=== PATIENT | male | born 1970 | race Two or more races ===

== ENCOUNTER 2024-08-18 06:14 | Emergency (ER) | payer OTHER, SELFPAY ==
[~2024-08-18] VITALS: Ht 180.3 cm; Wt 100.0 kg
--- NOTE | 2024-08-18 06:26 | ECG ---
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
--- NOTE | 2024-08-18 06:39 | ED.PDOC ---
GI ASSESSMENT HPI Comments 53 year old male presents to the ED via EMS with a chief complaint of abdominal pain onset last night. Per EMS, patient has been experiencing epigastric pain radiating to RUQ since last night as well as nausea/vomiting. Patient states he had hernia repair surgery on December [address] Coleman, since then experiences intermittent abdominal pain worsens after eating. He currently rates pain 7/10, states he has seen PCP, has been sent for gallbladder US, endoscopy and colonoscopy with negative results. PMHx of HTN. Denies headache, dizziness, chest pain, shortness of breath, diarrhea, dysuria, hematuria, hematemesis, blood in stood, fever, chills. No other symptoms or modifying factors present at this time. Chief Complaint: Abdominal Pain Time Seen by MD: 06:20 Reviewed Notes: Medications, Allergies Allergies: Coded Allergies: Morphine (Verified Allergy, Intermediate, vomiting , 08/18/24) Information Source: Patient, Emergency Med Personnel Mode of Arrival: EMS Timing: Hours Duration: Since onset Prehospital treatment: None Quality: Sharp Severity: Moderate Recent Hx of: None Pain Location: Epigastric, RUQ Modifying Factors: Nothing Associated sign and symptoms: Nausea, Vomiting, Abdominal Pain Past Medical History PAST MEDICAL HISTORY: HTN Surgical History: Hernia Repair Family History Family History: Reviewed,noncontributory to illness, No family hx of Cancer, No family hx of DM, No family hx of Heart rosa, No family hx of HTN, No family hx ofKidney rosa, No family hx of Liver rosa, No family hx of Lung rosa, No family hx of Stroke Social History Smoker: Non-Smoker Alcohol: Denies ETOH Use Drugs: Denies Drug Use Lives In: Home Constitutional: denies: chills, diaphoresis, fatigue, fever, malaise, sweats, weakness, others EENTM: denies: blurred vision, double vision, ear bleeding, ear discharge, ear drainage, ear pain, ear ringing, eye pain, eye redness, hearing loss, mouth pain, mouth swelling, nasal discharge, nose bleeding, nose congestion, nose pain, photophobia, tearing, throat pain, throat swelling, voice changes, others Respiratory: denies: cough, hemoptysis, orthopnea, SOB at rest, shortness of breath, SOB with excertion, stridor, wheezing, others Cardiovascular: denies: chest pain, dizzy spells, diaphoresis, Dyspnea on exertion, edema, irregular heart beat, left arm pain, lightheadedness, palpitations, PND, syncope, others Gastrointestinal: reports: abdominal pain, nausea, vomiting; denies: abdomen distended, blood streaked bowels, constipated, diarrhea, dysphagia, difficulty swallowing, hematemesis, melena, poor appetite, poor fluid intake, rectal bleeding, rectal pain, others Genitourinary: denies: burning, dysuria, flank pain, frequency, hematuria, incontinence, penile discharge, penile sore, pain, testicle pain, testicle swelling, urgency, others Neurological: denies: dizziness, fainting, headache, left sided numbness, left sided weakness, numbness, paresthesia, pre-existing deficit, right sided numbness, right sided weakness, seizure, speech problems, tingling, tremors, weakness, others Musculoskeletal: denies: back pain, gout, joint pain, joint swelling, muscle pain, muscle stiffness, neck pain, others Integumetry: denies: bruises, change in color, change in hair/nails, dryness, laceration, lesions, lumps, rash, wounds, others Hematologic/Lymphatic: denies: anemia, blood clots, easy bleeding, easy brui sing, swollen glands, others Endocrine: denies: excessive hunger, excessive sweating, excessive thirst, ex cessive urination, flushing, intolerance to cold, intolerance to heat, unexplained weight gain, unexplained weight loss, others Psychiatric: denies: anxiety, bipolar disorder, depression, hopeless, panic disorder, schizophrenia, sleepless, suicidal, others All Other Systems: Reviewed and Negative Physical Exam General Appearance: Moderate Distress, Normal HEENT: Normal ENT Inspection, Pharynx Normal, TMs Normal Neck: Full Range of Motion, Non-Tender, Normal, Normal Inspection Respiratory: Chest Non-Tender, Lungs Clear, No Accessory Muscle Use, No Respiratory Distress, Normal Breath Sounds Cardiovascular: No Edema, No JVD, No Murmur, No Gallop, Normal Peripheral Pulses, Regular Rate/Rhythm Breast Exam: Deferred Gastrointestinal: No Organomegaly, Non Tender, No Pulsatile Mass, Normal Bowel Sounds, Soft Genitalia: Deferred Pelvic: Deferred Rectal: Deferred Extremities: No calf tenderness, Normal capillary refill, Normal inspection, Normal range of motion, Non-tender, No pedal edema Musculoskeletal : Apperance: Normal Neurologic: Alert, machine engineer II-XII nml as Tested, No Motor Deficits, Normal Affect, Normal Mood, No Sensory Deficits Cerebellar Function: Normal Reflexes: Normal Skin: Dry, Normal Color, Warm Peripheral Pulses: 3+ Radial (R), 3+ Radial (L) Lymphatic: No Adenopathy EKG EKG : Pulse Rate (adult): 56 Cardiac Rhythm: NSR Was a procedure done? Was a procedure done?: No GI differential Dx Differential Diagnosis: Constipation, Diverticular disease, Esophagitis, Gastritis/PUD, Gastroenteritis X-Ray, Labs, Meds, VS Vital Signs Date Time Temp Pulse Resp B/P (MAP) Pulse Ox O2 Delivery O2 Flow Rate FiO2 08/18/24 07:35 84 18 96 Room Air* 0 21 08/18/24 07:35 149/97 08/18/24 07:35 98.3 84 18 149/97 (114) 96 98.3 08/18/24 06:50 81 16 147/87 (107) 81 08/18/24 06:39 56 08/18/24 06:27 98.1 65 18 170/104 (126) 97 98.1 08/18/24 06:17 56 Lab Test 08/18/24 07:12 Range/Units White Blood Count 10.7 4.4-10.8 10^3/uL Red Blood Count 5.83 4.5-5.90 10^6/uL Hemoglobin 18.2 H 13.5-17.5 g/dL Hematocrit 53.0 41.0-53.0 % Mean Corpuscular Volume 91.0 80.0-100.0 fL Mean Corpuscular Hemoglobin 31.2 28.0-32.0 pg Mean Corpuscular Hemoglobin Concent 34.2 32.0-36.0 g/dL Red Cell Distribution Width 15.3 H 11.8-14.3 % Platelet Count 191 140-450 10^3/uL Mean Platelet Volume 8.2 6.9-10.8 fL Neutrophils (%) (Auto) 87.5 H 37.0-80.0 % Lymphocytes (%) (Auto) 7.5 L 10.0-50.0 % Monocytes (%) (Auto) 4.4 0.0-12.0 % Eosinophils (%) (Auto) 0.1 0.0-7.0 % Basophils (%) (Auto) 0.5 0.0-2.0 % Neutrophils # (Auto) 9.4 H 1.6-8.6 10 ^3/uL Lymphocytes # (Auto) 0.8 0.4-5.4 10 ^3/uL Monocytes # (Auto) 0.5 0-1.3 10 ^3/uL Eosinophils # (Auto) 0 0-0.8 10 ^3/uL Basophils # (Auto) 0.1 0-0.2 10 ^3/uL Nucleated Red Blood Cells 0.1 % Sodium Level 137 136-145 mmol/L Potassium Level 4.2 3.5-5.1 mmol/L Chloride Level 105 98-107 mmol/L Carbon Dioxide Level 27 20-31 mmol/L Anion Gap 5 5-15 Blood Urea Nitrogen 13 9-23 mg/dL Creatinine 1.03 0.700-1.30 mg/dL Glomerular Filtration Rate Calc 88 >90 mL/min BUN/Creatinine Ratio 12.6 10.0-20.0 Serum Glucose 130 H 74-106 mg/dL Calcium Level 10.3 8.7-10.4 mg/dL Total Bilirubin 0.8 0.2-1.0 mg/dL Lipase Pending Current Medications Medications (Trade) Dose Ordered Sig/Enrique Route Start Time Stop Time Status Last Admin Ondansetron HCl (Zofran) 4 mg ONCE ONCE IV 08/18/24 06:45 08/18/24 06:49 DC 08/18/24 07:14 Ketorolac Tromethamine (Toradol Injection) 30 mg ONCE ONCE IV 08/18/24 07:15 08/18/24 07:16 DC 08/18/24 07:14 Patient alert. Complaining of abdominal pain. Abdomen is soft nontender. Blood pressure slightly elevated. Was given clonidine. Was given morphine. Was given Zofran. Has been here many times for similar symptom. Reviewed his previous visit. Continue monitor. Ultrasound reviewed does not show any acute process. WBC within normal limits. Hemoglobin within normal limits. Was given pain medication. Explained to the patient. Was told to follow up with his primary care physician. Was told to come back if there is any problem. [address] [address] Ph: [phone] DIAGNOSTIC IMAGING Diagnostic Imaging Report : [id number] Signed PATIENT: BRISA ROSALES ACCT: [id number] UNIT: [id number] : 1970 LOC: ER ROOM / BED: / AGE / SEX: 53 / M ADM STATUS: REG ER SERVICE ORDERING PHYSICIAN: LIDIA RESTREPO MD PROCEDURE(s): GBUS - GALLBLADDER REASON: stone ORDER NUMBER(s): [id number], ACCESSION NUMBER(s): [id number] EXAM: US GALLBLADDER INDICATION: stone TECHNIQUE: Multiple real-time sonographic images were obtained of the right upper quadrant. COMPARISON: None FINDINGS: The liver demonstrates homogenous echotexture without focal mass lesions. The liver measures 15.1 cm in length. There is hepatopedal color doppler flow in the main portal vein. There is no intrahepatic biliary ductal dilatation. The gallbladder is without evidence of stone or sludge. The gallbladder wall measures 0.2 cm. The common bile duct measures 0.2 cm. The right kidney measures 11.9 cm. The right kidney is normal in contour, size, and shape. The echogenicity is normal. There is no hydronephrosis. The pancreas is not well visualized due to overlying bowel gas. Visualized portions of the aorta and inferior vena cava are unremarkable. No evidence of ascites. IMPRESSION: 1. No acute process. ATED BY: KONSTANTIN BARNES MD DICTATED DATE/TIME: 08/18/24724 SIGNED BY: KONSTANTIN BARNES MD SIGNED DATE/TIME: 08/18/24724 CC: Time of 1ST Reevaluation: 06:50 Reevaluation 1ST: Unchanged Time of 2ND Reevaluation: 08:52 Reevaluation 2ND: Improved Patient Education/Counseling: Diagnosis, Treatment, Prognosis Family Education/Counseling: No Family Present Additional Information The following tests were ordered, and results were reviewed by me: EKG, CBC, LIPASE, US GALLBLADDER, BILIRUBIN Additional Information was gathered from interviewing the following independent historians: EMS I reviewed and agreed with the following test results read by other providers: US GALLBLADDER I discussed treatment and results with medical personnel and: patient Comprehensive systems review obtained and negative except for what is stated in the HPI. Departure 1 Departure Time of Disposition: 06:45 Impression: Primary Impression: Acute abdominal pain Disposition: 01 HOME / SELF CARE / HOMELESS Condition: Good Discharged With: Self Critical Care Note Critical Care Time?: No Stability Stability form required: No Heart Score Heart Score: Heart Score Response (Comments) Value History N/A 0 EKG N/A 0 Age N/A 0 Risk Factors N/A 0 Troponin N/A 0 Total 0 I personally scribed for LIDIA RESTREPO MD ([email or web address]) on 08/18/24 at 06:39. Electronically submitted by Yoli Bobo ([email or web address]). I personally scribed for LIDIA RESTREPO MD ([email or web address]) on 08/18/24 at 08:04. Electronically submitted by Yoli Bobo ([email or web address]). I personally scribed for LIDIA RESTREPO MD ([email or web address]) on 08/18/24 at 08:04. Electronically submitted by Yoli Bobo ([email or web address]). LIDIA RESTREPO MD August 18, 2024 06:39
[2024-08-18] MEDS: MORPHINE SULFATE INJ 2 MG/ml SYRG IV ONE (06:53)
[2024-08-18] MEDS: ONDANSETRON HCL 4 MG/2 ML VIAL IV ONE (07:14)
[2024-08-18] MEDS: KETOROLAC TROMETH 30 MG/ML 1ML VIAL IV ONE (07:14)
--- NOTE | 2024-08-18 07:27 | DVH ---
EXAM: US GALLBLADDER INDICATION: stone TECHNIQUE: Multiple real-time sonographic images were obtained of the right upper quadrant. COMPARISON: None FINDINGS: The liver demonstrates homogenous echotexture without focal mass lesions. The liver measure s 15.1 cm in length. There is hepatopedal color doppler flow in the main portal vein. There is no int rahepatic biliary ductal dilatation. The gallbladder is without evidence of stone or sludge. The gallbladder wall measures 0.2 cm. The common bile duct measures 0.2 cm. The right kidney measures 11.9 cm. The right kidney is normal in contour, size, and shape. The ech ogenicity is normal. There is no hydronephrosis. The pancreas is not well visualized due to overlying bowel gas. Visualized portions of the aorta and inferior vena cava are unremarkable. No evidence of ascites. IMPRESSION: 1. No acute process.
[2024-08-18 07:32] LABS: Anion Gap 5 (5-15); Carbon Dioxide 27 mmol/L (20-31); Chloride 105 mmol/L (98-107); Potassium 4.2 mmol/L (3.5-5.1); Sodium 137 mmol/L (136-145)
[2024-08-18 07:33] LABS: Calcium 10.3 mg/dL (8.7-10.4)
[2024-08-18 07:35] VITALS: BP 149/97; PULSE 84; RESP 18; TEMP 98.3; O2SAT 96
[2024-08-18] MEDS: cloNIDine HCL 0.1 MG TAB PO ONE (07:35)
[2024-08-18 07:38] LABS: BUN/Creatinine Ratio 12.6 (10.0-20.0); Blood Urea Nitrogen 13 mg/dL (9-23)
[2024-08-18 07:40] LABS: Bilirubin, Total 0.8 mg/dL (0.2-1.0); Glucose 130 mg/dL (74-106)
[2024-08-18 07:41] LABS: Eosinophils # (auto) 0 10 ^3/uL (0-0.8); Eosinophils % (auto) 0.1 % (0.0-7.0); Lymphocytes # (auto) 0.8 10 ^3/uL (0.4-5.4); Red Cell Distribution Width 15.3 % (11.8-14.3)
[2024-08-18 07:45] LABS: Basophils # (auto) 0.1 10 ^3/uL (0-0.2); Basophils % (auto) 0.5 % (0.0-2.0); Hemoglobin 18.2 g/dL (13.5-17.5); Lymphocytes % (auto) 7.5 % (10.0-50.0); Mean Corpuscular Hemoglobin 31.2 pg (28.0-32.0); Mean Corpuscular Hgb Conc. 34.2 g/dL (32.0-36.0); Monocytes # (auto) 0.5 10 ^3/uL (0-1.3); Monocytes % (auto) 4.4 % (0.0-12.0); Neutrophils # (auto) 9.4 10 ^3/uL (1.6-8.6); Neutrophils % (auto) 87.5 % (37.0-80.0); Nucleated Red Blood Cells % 0.1 %; Platelet Count (auto) 191 10^3/uL (140-450); Red Blood Cells 5.83 10^6/uL (4.5-5.90); White Blood Cell 10.7 10^3/uL (4.4-10.8)
[2024-08-18 08:58] LABS: Lipase 171 U/L (12-53)
== END 2024-08-18 09:21 | disposition home or self-care (01) ==
LOC: ER 06:14 → EDBD 06:14 → ER 09:21
DX: R10.13 Epigastric pain (principal); I10 Essential (primary) hypertension; Z88.5 Allergy status to narcotic agent; Z98.890 Other specified postprocedural states
CPT/HCPCS: 36415; 76705; 80048; 82247; 83690; 85025; 93005; 96374; 96375; 99285; J1885; J2405

== ENCOUNTER 2024-10-07 02:43 | Inpatient (IN) | payer SELFPAY ==
[~2024-10-07] VITALS: Ht 175.3 cm; Wt 82.2 kg
[2024-10-07] VITALS (10 sets, daily range): BP systolic 110–141; BP diastolic 53–77; PULSE 54–72; RESP 9–20; TEMP 97.5–98.6; O2SAT 87–98
--- NOTE | 2024-10-07 03:21 | ED.PDOC ---
History of Present Illness HPI Comments 54-year-old male is brought in by ambulance from private residence for chief complaint of nonradiating, periumbilical abdominal, nausea, vomiting, diarrhea, and poor appetite. Patient endorses 1 day history of symptoms, which began yesterday at around 1400, unprovoked. Symptoms has been progressively worsening since. Pain has a 8/10 in severity, transitions between constant and intermittent, worsens whenever standing up, and is described as a balloon blowing up sensation. He endorses on having history of pain before in the past ever since having his hernia repair surgery in December 2023 at [facility], which he has had 2 subsequent bowel obstructions since then. Last bowel movement was yesterday. Patient states on not passing gas, currently. Significant history for small-bowel obstructions, hernia repair, and hypertension. Denies having any bloody or bilious vomitus, bloody stools, constipation, urinary symptoms, fever, chills, or further associated symptoms. Chief Complaint: Abdominal Pain Time Seen by MD: 02:50 Reviewed Notes: Nurses Notes, Medications, Allergies Allergies: Coded Allergies: Morphine (Verified Allergy, Intermediate, vomiting , 08/18/24) Home Meds Active Scripts Dicyclomine Hcl (BENTYL CAPSULE) 10 Mg Cp, 20 MG PO QID for 30 Days, #190 CAP Prov:WAYNE HENAO MD 10/08/24 Information Source: Patient, Emergency Med Personnel Mode of Arrival: EMS Severity: Moderate Timing: Hours Duration: Since onset Prehospital treatment: 12 Lead EKG, Accounts Receivable Coordinator, Other (Zofran) Review of Systems: REVIEW OF SYSTEMS: General: No fever, no chills, or fatigue HEENT: No sore throat, no earache, no congestion, no neck pain. Cardiac: No chest pain. No palpitations. Lungs: No shortness of breath, no cough. GI: Abdominal pain, nausea, vomiting, diarrhea, poor appetite, no constipation : No dysuria, frequency, or urgency. No hematuria. Musculoskeletal: No joint pain , no joint swelling, no extremity edema. Skin: No rash, no itching. Neuro: No headache, no dizziness, no weakness Vital Signs Vital Signs Date Time Temp Pulse Resp B/P (MAP) Pulse Ox O2 Delivery O2 Flow Rate FiO2 10/07/24 07:00 62 17 165/79 (107) 95 10/07/24 04:25 Room Air* 0 21 10/07/24 04:00 98.3 98.3 Physical Exam PHYSICAL EXAM: General: Awake, alert and oriented. No acute distress. Skin: Skin in warm, dry and intact. Appropriate color for ethnicity. HEENT: The head is normocephalic and atraumatic. Conjunctivae are clear without exudates or hemorrhage. Sclera is non-icteric. EOM are intact. No signs of nystagmus. Eyelids are normal in appearance without swelling or lesions. Oral mucosa is pink and moist Neck: The neck is supple with normal range of motion. No JVD. Cardiac: Heart rate and rhythm are normal. No murmurs, gallops, or rubs are auscultated. Respiratory: No signs of respiratory distress. Lung sounds are clear in all lobes bilaterally without rales, rhonchi, or wheezes. Abdominal: Diffuse abdominal tenderness. Diminished bowel sounds. Remaining abdomen is soft, without distention, guarding or rigidity. Extremities: Upper and lower extremities are atraumatic in appearance without deformity or edema. Neurological: The patient is awake, alert and oriented to person, place, and time with normal speech. Speech is clear. There is no facial asymmetry. Psychiatric: Appropriate mood and affect. Good judgement and insight. Past Medical History PAST MEDICAL HISTORY: HTN Past Medical History (Other): Two small bowel obstructions Surgical History: Hernia Repair Family History Family History: Reviewed,noncontributory to illness, No family hx of Cancer, No family hx of DM, No family hx of Heart rosa, No family hx of HTN, No family hx ofKidney rosa, No family hx of Liver rosa, No family hx of Lung rosa, No family hx of Stroke Social History Smoker: Non-Smoker Alcohol: Denies ETOH Use Drugs: Denies Drug Use Lives In: Home Was a procedure done? Was a procedure done?: No Differential Dx Considerations may include: Differential diagnoses considered include: Abdominal aortic aneurysm, AL, esophageal rupture, intestinal obstruction, mesenteric ischemia, perforated viscus or solid organ rupture, CHF with hepatomegaly, pneumonia, abscess, appendicitis, biliary disease, diverticulitis, gastritis, gastroenteritis, hepatitis, hernia, inflammatory bowel disease, pancreatitis, peptic ulcer disease, urinary tract infection, ureteral colic, constipation, GERD, irritable syndrome, abdominal wall pain, nonspecific abdominal pain, herpes zoster, nephrolithiasis. X-Ray, Labs, Meds, VS Vital Signs Date Time Temp Pulse Resp B/P (MAP) Pulse Ox O2 Delivery O2 Flow Rate FiO2 10/07/24 07:00 62 17 165/79 (107) 95 10/07/24 06:09 74 158/80 10/07/24 06:01 158/80 10/07/24 06:00 68 20 158/80 (106) 94 10/07/24 04:56 197/88 10/07/24 04:25 91 Room Air* 0 21 10/07/24 04:00 98.3 64 12 186/89 (121) 91 98.3 10/07/24 03:09 98.7 72 20 177/104 (128) 98 98.7 Lab Test 10/07/24 05:38 10/07/24 03:23 Range/Units Urine Color Light-yellow Yellow Urine Clarity Clear Clear Urine pH 7.0 5.0-9.0 Urine Specific [place] 1.018 1.001-1.035 Urine Protein Negative Negative Urine Ketones 1+ H Negative Urine Blood Negative Negative /uL Urine Nitrite Negative Negative Urine Bilirubin Negative Negative Urine Urobilinogen Normal Negative mg/dL Urine Leukocyte Esterase Negative Negative /uL Urine RBC 2 0 - 3 /hpf Urine Microscopic WBC 1 0-3 /HPF Urine Squamous Epithelial Cells None seen <5 /hpf Urine Bacteria None seen None Seen /hpf Urine Mucus Few None Seen Urine Glucose Trace Normal mg/dL White Blood Count 9.6 4.4-10.8 10^3/uL Red Blood Count 5.56 4.5-5.90 10^6/uL Hemoglobin 17.9 H 13.5-17.5 g/dL Hematocrit 51.0 41.0-53.0 % Mean Corpuscular Volume 91.8 80.0-100.0 fL Mean Corpuscular Hemoglobin 32.1 H 28.0-32.0 pg Mean Corpuscular Hemoglobin Concent 35.0 32.0-36.0 g/dL Red Cell Distribution Width 14.6 H 11.8-14.3 % Platelet Count 236 140-450 10^3/uL Mean Platelet Volume 7.4 6.9-10.8 fL Neutrophils (%) (Auto) 84.6 H 37.0-80.0 % Lymphocytes (%) (Auto) 9.7 L 10.0-50.0 % Monocytes (%) (Auto) 5.4 0.0-12.0 % Eosinophils (%) (Auto) 0.0 0.0-7.0 % Basophils (%) (Auto) 0.3 0.0-2.0 % Neutrophils # (Auto) 8.1 1.6-8.6 10 ^3/uL Lymphocytes # (Auto) 0.9 0.4-5.4 10 ^3/uL Monocytes # (Auto) 0.5 0-1.3 10 ^3/uL Eosinophils # (Auto) 0 0-0.8 10 ^3/uL Basophils # (Auto) 0 0-0.2 10 ^3/uL Nucleated Red Blood Cells 0.0 % Sodium Level 138 136-145 mmol/L Potassium Level 3.7 3.5-5.1 mmol/L Chloride Level 106 98-107 mmol/L Carbon Dioxide Level 26 20-31 mmol/L Anion Gap 6 5-15 Blood Urea Nitrogen 15 9-23 mg/dL Creatinine 0.88 0.700-1.30 mg/dL Glomerular Filtration Rate Calc 103 >90 mL/min BUN/Creatinine Ratio 17.0 10.0-20.0 Serum Glucose 133 H 74-106 mg/dL Lactic Acid Level 1.4 0.4-2.0 mmol/L Calcium Level 9.7 8.7-10.4 mg/dL Total Bilirubin 0.6 0.2-1.0 mg/dL Aspartate Amino Transferase (AST) 24 13-40 U/L Alanine Aminotransferase (ALT) 16 7-40 U/L Alkaline Phosphatase 82 46-116 U/L Total Protein 7.4 5.7-8.2 g/dL Albumin 4.4 3.2-4.8 g/dL Lipase 33 12-53 U/L PATIENT: BRISA ROSALES RACCT: [id number]: [id number] : 1970 LOC: ER ROOM / BED: / AGE / SEX: 54 / M ADM STATUS: REG ER SERVICE [id number] ORDERING PHYSICIAN: MYNOR BLUE MD PROCEDURE(s): ABPL - CT AB PEL WO CON-NO ORAL OR IV REASON: abd pain, nausea, vomiting, history SBO ORDER NUMBER(s): [id number], ACCESSION NUMBER(s): [id number] Exam: CT CT AB PEL WO CON-NO ORAL OR IV History: abd pain, nausea, vomiting, history SBO Comparison Study: None Technique: Multidetector spiral CT of the abdomen was performed from lung bases to pubic symphysis. Imaging was performed without IV contrast. Axial, coronal and sagittal multiplanar reformats were obtained from the axial data set by the technologist. Radiation Dose : 1. Abdomen/Pelvis: CTDIvol 8.01 mGy, DLP 441.69 mGy*cm. Findings: Evaluation of solid organs is limited due to lack of intravenous contrast use. Lung Bases: No acute or significant lung base finding. Normal heart size. No pleural or pericardial effusion. Liver: The liver is normal in size. No focal lesions. Gallbladder and Biliary Tree: Moderate nonspecific gallbladder distention. Spleen: Unremarkable Pancreas: The pancreas is grossly normal in appearance. Adrenal Glands: Unremarkable Kidneys: Kidneys are grossly normal without calculi or hydronephrosis. Bladder: Grossly unremarkable for degree of distention. Bowel: The stomach is grossly normal in appearance. Moderately dilated gas and fluid-filled segments of small bowel throughout the abdomen exhibiting air-fluid levels with a maximum luminal diameter of 4.2 cm. Relatively abrupt transition of caliber within the central left paramedian abdomen, however, no identifiable obstructive etiology. On image number 55 of series 2 a segment of bowel appears to encircle mesenteric vessels, however, the leading and lagging segments of small bowel in this region are both dilated. Diverticulosis coli without CT evidence of acute diverticulitis. The appendix is surgically absent. Ascites: Small volume pelvic ascites. Lymphadenopathy: No mesenteric, retroperitoneal or periportal lymphadenopathy. Abdominal Wall and Mesentery: Fat containing left lower quadrant abdominal wall hernia, likely residual from prior loop colostomy. Small fat containing umb ilical hernia. Vasculature: The visualized abdominal aorta is normal in size and caliber. Atherosclerotic vascular calcifications. Evaluation of abdominal and pelvic vessels is limited due to lack of intravenous contrast. Pelvic Organs: The prostate is mildly enlarged, measuring 4.8 cm transverse. Musculoskeletal: No aggressive focal bony lesions, acute fractures or dislocation. IMPRESSION: 1. Dilated segments of small bowel exhibiting air-fluid levels without an identifiable obstructive etiology. A segment of dilated bowel appears to be encompassing mesenteric vessels within the central abdomen, however, this does not correspond with the zone of transition of caliber. 2. Diverticulosis coli without CT evidence of acute diverticulitis. 3. Moderate gallbladder distention. 4. Left lower quadrant ventral abdominal wall hernia containing fat, likely residual from prior loop colostomy. Radiation optimization: All CT scans at this facility use at least one of these dose optimization techniques: automated exposure control mA and/or kV adjustment per patient size (includes targeted exams where dose is matched to clinical indication) or iterative reconstruction. ATED BY: KP JEREZ MD DICTATED DATE/TIME: 10/07/24433 SIGNED BY: KP JEREZ MD SIGNED DATE/TIME: 10/07/24433 Time of 1ST Reevaluation: 03:20 Reevaluation 1ST: Unchanged Patient Education/Counseling: Treatment, Need For Follow Up Family Education/Counseling: No Family Present SEPSIS Sepsis Screen Physician Orders Ct Ab Pel Wo Con-No Oral Or Iv (10/07/24 02:56) Vital Signs Date Time Temp Pulse Resp B/P (MAP) Pulse Ox O2 Delivery O2 Flow Rate FiO2 10/07/24 07:00 62 17 165/79 (107) 95 10/07/24 06:09 74 158/80 10/07/24 06:01 158/80 10/07/24 06:00 68 20 158/80 (106) 94 10/07/24 04:56 197/88 10/07/24 04:25 91 Room Air* 0 21 10/07/24 04:00 98.3 64 12 186/89 (121) 91 98.3 10/07/24 03:09 98.7 72 20 177/104 (128) 98 98.7 Laboratory Tests Test 10/07/24 03:23 Lactic Acid Level 1.4 mmol/L (0.4-2.0) White Blood Count 9.6 10^3/uL (4.4-10.8) Departure 1 Departure Time of Disposition: 05:19 Impression: Primary Impression: Acute abdominal pain Disposition: ADMITTED INPATIENT Condition: Stable e-Prescriptions Dicyclomine Hcl (BENTYL CAPSULE) 10 Mg Cp 20 MG PO QID for 30 Days, #190 CAP Prov: WAYNE HENAO MD 10/08/24 Comments Patient admitted to hospitalist service for further treatment, evaluation and monitoring. Extensive evaluation was performed in attempt to identify or rule out: (See differential diagnosis section) The following tests were ordered, and results were reviewed by me and discussed with patient: (See diagnostic results section) The following test were independently interpreted by me: N/A I reviewed and agreed with the following test results read by other providers: CT of the abdomen and pelvis without contrast I reviewed the following notes from the pt's past medical encounters: June 18, 2019, January 06, 2024, February 07, 2024, February 24, 2024, February 29, 2024, and August 18, 2024 encounters for acute abdominal pain, abdominal pain, SBO, SBO, small-bowel obstruction, and acute abdominal pain, respectively. Additional information was gathered from interviewing the following independent historians: EMS personnel Decision regarding hospitalization or escalation of hospital level of care: Risk and benefits of admission for further treatment of patient's condition was considered. Due to patient's current clinical condition, high risk of decline and poor outcome if discharged and need for further inpatient management and monitoring, patient will be admitted to the hospital. Drug therapy requiring intensive monitoring for toxicity: N/A Parenteral controlled substances: IV fentanyl Decision regarding elective major surgery with identified patient or procedure risk factors: N/A Decision regarding emergency major surgery: N/A Decision not to resuscitate or to de-escalate care because of poor prognosis: N/ A Diagnosis or treatment significantly limited by social determinants of health: N/A Critical Care Note Critical Care Time?: No Stability Stability form required: No Heart Score Heart Score: Heart Score Response (Comments) Value History N/A 0 EKG N/A 0 Age N/A 0 Risk Factors N/A 0 Troponin N/A 0 Total 0 I personally scribed for MYNOR BLUE MD ([email or web address]) on 10/07/24 at 03:21. Electronically submitted by Chau Pugh ([email or web address]). MYNOR BLUE MD Oct 07, 2024 03:21
[2024-10-07 03:40] LABS: Nucleated Red Blood Cells % 0.0 %
[2024-10-07 03:43] LABS: Hematocrit 51.0 % (41.0-53.0); Hemoglobin 17.9 g/dL (13.5-17.5); Mean Corpuscular Hemoglobin 32.1 pg (28.0-32.0); Mean Corpuscular Volume 91.8 fL (80.0-100.0)
[2024-10-07 03:54] LABS: Alanine Aminotransferase 16 U/L (7-40); Albumin 4.4 g/dL (3.2-4.8); Alkaline Phosphatase 82 U/L (46-116); Anion Gap 6 (5-15); BUN/Creatinine Ratio 17.0 (10.0-20.0); Blood Urea Nitrogen 15 mg/dL (9-23); Calcium 9.7 mg/dL (8.7-10.4); Carbon Dioxide 26 mmol/L (20-31); Chloride 106 mmol/L (98-107); Lipase 33 U/L (12-53); Potassium 3.7 mmol/L (3.5-5.1); Sodium 138 mmol/L (136-145); Total Protein 7.4 g/dL (5.7-8.2)
[2024-10-07 03:55] LABS: Bilirubin, Total 0.6 mg/dL (0.2-1.0)
[2024-10-07] MEDS: ONDANSETRON HCL 4 MG/2 ML VIAL IV ONE (03:55)
[2024-10-07] MEDS: KETOROLAC TROMETH 30 MG/ML 1ML VIAL IV ONE (03:55)
[2024-10-07] MEDS: ACETAMINOPHEN IV 1000 MG/100ML (10MG/ML) IV ONE (03:55)
[2024-10-07 04:01] LABS: Glucose 133 mg/dL (74-106)
--- NOTE | 2024-10-07 04:36 | DVH ---
Exam: CT CT AB PEL WO CON-NO ORAL OR IV History: abd pain, nausea, vomiting, history SBO Comparison Study: None Technique: Multidetector spiral CT of the abdomen was performed from lung bases to pubic symphysis. I maging was performed without IV contrast. Axial, coronal and sagittal multiplanar reformats were obta ined from the axial data set by the technologist. Radiation Dose : 1. Abdomen/Pelvis: CTDIvol 8.01 mGy, DLP 441.69 mGy*cm. Findings: Evaluation of solid organs is limited due to lack of intravenous contrast use. Lung Bases: No acute or significant lung base finding. Normal heart size. No pleural or pericardial effusion. Liver: The liver is normal in size. No focal lesions. Gallbladder and Biliary Tree: Moderate nonspecific gallbladder distention. Spleen: Unremarkable Pancreas: The pancreas is grossly normal in appearance. Adrenal Glands: Unremarkable Kidneys: Kidneys are grossly normal without calculi or hydronephrosis. Bladder: Grossly unremarkable for degree of distention. Bowel: The stomach is grossly normal in appearance. Moderately dilated gas and fluid-filled segments of small bowel throughout the abdomen exhibiting air-fluid levels with a maximum luminal diameter of 4.2 cm. Relatively abrupt transition of caliber within the central left paramedian abdomen, however, no identifiable obstructive etiology. On image number 55 of series 2 a segment of bowel appears to en hoh mesenteric vessels, however, the leading and lagging segments of small bowel in this region ar e both dilated. Diverticulosis coli without CT evidence of acute diverticulitis. The appendix is surg ically absent. Ascites: Small volume pelvic ascites. Lymphadenopathy: No mesenteric, retroperitoneal or periportal lymphadenopathy. Abdominal Wall and Mesentery: Fat containing left lower quadrant abdominal wall hernia, likely residu al from prior loop colostomy. Small fat containing umbilical hernia. Vasculature: The visualized abdominal aorta is normal in size and caliber. Atherosclerotic vascular c alcifications. Evaluation of abdominal and pelvic vessels is limited due to lack of intravenous cont rast. Pelvic Organs: The prostate is mildly enlarged, measuring 4.8 cm transverse. Musculoskeletal: No aggressive focal bony lesions, acute fractures or dislocation. IMPRESSION: 1. Dilated segments of small bowel exhibiting air-fluid levels without an identifiable obstructive et iology. A segment of dilated bowel appears to be encompassing mesenteric vessels within the central a bdomen, however, this does not correspond with the zone of transition of caliber. 2. Diverticulosis coli without CT evidence of acute diverticulitis. 3. Moderate gallbladder distention. 4. Left lower quadrant ventral abdominal wall hernia containing fat, likely residual from prior loop colostomy. Radiation optimization: All CT scans at this facility use at least one of these dose optimization salud hniques: automated exposure control mA and/or kV adjustment per patient size (includes targeted exam s where dose is matched to clinical indication) or iterative reconstruction.
[2024-10-07] MEDS: fentaNYL CITRATE 100 MCG/2 ML VL IV ONE ×2 (04:56→06:01)
[2024-10-07] MEDS: LABETALOL HCL 20 MG/4 ML VL IV ONE (06:09)
[2024-10-07 06:25] LABS: Urine Protein, UAD Negative (Negative)
--- NOTE | 2024-10-07 07:11 | DVHHP2 ---
History of Present Illness Reason for Visit: Abdominal pain History of Present Illness 54-year-old male past medical history hypertension small-bowel obstruction x2 after right inguinal hernia surgery in December of 2023 chief complaint patient states he has been dealing with random events of bowel obstruction since he had a surgery in December of 2023. Patient states he has been having some epigastric pain and burning sensation along with abdominal bloating and distention feeling all this started yesterday 2:00 p.m. he also had some nausea and vomiting and some diarrhea. Patient states he had specks of blood in his vomit but nothing new since he has been admitted. Patient is currently states his abdomen feels like ball is in his stomach. He denies any tearing sensation in his chest abdomen. He is concerned because he usually has a bowel obstruction like last time. He did state he follow up with GI outpatient in his supposed to do a pill steady for him which the pending authorization. Patient states he did have a bowel movement last time was two days prior. When evaluating patient's labs and imaging fentanyl was given labetalol Zofran Toradol Tylenol hemoglobin was found to be 17.9 glucose 133 otherwise CBC and CMP unremarkable UA was ketones CT scan of the abdomen pelvis shows dilated small bowel no obstruction diverticulosis gallbladder distention and left lower quadrant differential abdominal wall hernia. With these findings we will admit and ask for General surgery evaluation NPO IV fluids pain medications. Past Medical History See HPI above Past Surgical History See HPI above Family History Reviewed, non-contributory to the management of this case. Past Social History The patient lives at home, denies smoking, alcohol or illicit drugs abuse. Review of Systems Constitutional: No: Fever, Chills, Sweats, Weakness, Malaise, Other Eyes: No: Pain, Vision change, Conjunctivae inflammation, Eyelid inflammation, Other, Redness ENT: No: Ear pain, Ear discharge, Nose pain, Nose discharge, Nose congestion, Mouth pain, Mouth swelling, Throat pain, Throat swelling, Other Respiratory: No: Cough, Dry, Shortness of breath, SOB with excertion, Wheezing, Hemoptysis, Pleuritic Pain, Sputum, Wheezing, Other Cardiovascular: No: Chest Pain, Palpitations, Orthopnea, Paroxysmal Noc. Dyspnea, Edema, Lt Headedness, Other Gastrointestinal: Nausea, Vomiting, Abdominal Pain; No: Diarrhea, Constipation, Melena, Hematochezia, Other Genitourinary: No Dysuria, No Frequency, No Incontinence, No Hematuria, No Retention, No Other Musculoskeletal: No: other, neck pain, shoulder pain, arm pain, back pain, hand pain, leg pain, foot pain Skin: No: Rash, Lesions, Jaundice, Bruising, Other Neurological: No: Weakness, Numbness, Incoordination, Change in speech, Confusion, Seizures, Other Allergies: Coded Allergies: Morphine (Verified Allergy, Intermediate, vomiting , 08/18/24) Exam Vital Signs Vital Signs Date Time Temp Pulse Resp B/P (MAP) Pulse Ox O2 Delivery O2 Flow Rate FiO2 10/07/24 06:09 74 158/80 10/07/24 04:25 91 Room Air* 0 21 10/07/24 04:00 98.3 12 98.3 General Appearance: Alert, Oriented X3, Cooperative, No acute distress HEENT: Atraumatic, PERRLA, EOMI, Mucous membr. moist/pink Respiratory: Clear to auscultation, Normal air movement Cardiovascular: Regular rate, Normal S1, Normal S2, No murmurs Abdominal: Normal bowel sounds, Soft, No hepatospenomegaly, No masses, Other (no distending abd ) Extremities: No clubbing, No cyanosis, No edema Skin: No rashes, No breakdown, No significant lesion Neuro: Normal gait, Normal speech, Strength at 5/5 X4 ext, Normal tone, Sensation intact, Cranial nerves 3-12 NL Psych/Mental Status: Mental status NL, Mood NL Labs/Xrays ct abd pelvis IMPRESSION: 1. Dilated segments of small bowel exhibiting air-fluid levels without an identifiable obstructive etiology. A segment of dilated bowel appears to be encompassing mesenteric vessels within the central abdomen, however, this does not correspond with the zone of transition of caliber. 2. Diverticulosis coli without CT evidence of acute diverticulitis. 3. Moderate gallbladder distention. 4. Left lower quadrant ventral abdominal wall hernia containing fat, likely residual from prior loop colostomy. Radiation optimization: All CT scans at this facility use at least one of these dose optimization techniques: automated exposure control mA and/or kV adjustment per patient size (includes targeted exams where dose is matched to clinical indication) or iterative reconstruction. I reviewed labs, imaging CT scan abdomen pelvis, EKG and all diagnostic studies on this patient from ED records and the medical chart Labs Test 10/07/24 05:38 10/07/24 03:23 Range/Units Urine Color Light-yellow Yellow Urine Clarity Clear Clear Urine pH 7.0 5.0-9.0 Urine Specific [place] 1.018 1.001-1.035 Urine Protein Negative Negative Urine Ketones 1+ H Negative Urine Blood Negative Negative /uL Urine Nitrite Negative Negative Urine Bilirubin Negative Negative Urine Urobilinogen Normal Negative mg/dL Urine Leukocyte Esterase Negative Negative /uL Urine RBC 2 0 - 3 /hpf Urine Microscopic WBC 1 0-3 /HPF Urine Squamous Epithelial Cells None seen <5 /hpf Urine Bacteria None seen None Seen /hpf Urine Mucus Few None Seen Urine Glucose Trace Normal mg/dL White Blood Count 9.6 4.4-10.8 10^3/uL Red Blood Count 5.56 4.5-5.90 10^6/uL Hemoglobin 17.9 H 13.5-17.5 g/dL Hematocrit 51.0 41.0-53.0 % Mean Corpuscular Volume 91.8 80.0-100.0 fL Mean Corpuscular Hemoglobin 32.1 H 28.0-32.0 pg Mean Corpuscular Hemoglobin Concent 35.0 32.0-36.0 g/dL Red Cell Distribution Width 14.6 H 11.8-14.3 % Platelet Count 236 140-450 10^3/uL Mean Platelet Volume 7.4 6.9-10.8 fL Neutrophils (%) (Auto) 84.6 H 37.0-80.0 % Lymphocytes (%) (Auto) 9.7 L 10.0-50.0 % Monocytes (%) (Auto) 5.4 0.0-12.0 % Eosinophils (%) (Auto) 0.0 0.0-7.0 % Basophils (%) (Auto) 0.3 0.0-2.0 % Neutrophils # (Auto) 8.1 1.6-8.6 10 ^3/uL Lymphocytes # (Auto) 0.9 0.4-5.4 10 ^3/uL Monocytes # (Auto) 0.5 0-1.3 10 ^3/uL Eosinophils # (Auto) 0 0-0.8 10 ^3/uL Basophils # (Auto) 0 0-0.2 10 ^3/uL Nucleated Red Blood Cells 0.0 % Sodium Level 138 136-145 mmol/L Potassium Level 3.7 3.5-5.1 mmol/L Chloride Level 106 98-107 mmol/L Carbon Dioxide Level 26 20-31 mmol/L Anion Gap 6 5-15 Blood Urea Nitrogen 15 9-23 mg/dL Creatinine 0.88 0.700-1.30 mg/dL Glomerular Filtration Rate Calc 103 >90 mL/min BUN/Creatinine Ratio 17.0 10.0-20.0 Serum Glucose 133 H 74-106 mg/dL Lactic Acid Level 1.4 0.4-2.0 mmol/L Calcium Level 9.7 8.7-10.4 mg/dL Total Bilirubin 0.6 0.2-1.0 mg/dL Aspartate Amino Transferase (AST) 24 13-40 U/L Alanine Aminotransferase (ALT) 16 7-40 U/L Alkaline Phosphatase 82 46-116 U/L Total Protein 7.4 5.7-8.2 g/dL Albumin 4.4 3.2-4.8 g/dL Lipase 33 12-53 U/L SEPSIS Sepsis Screen Date sepsis recognized/suspect: Oct 07, 2024 Time Sepsis recognized/suspect: 399 Recent Procedure: No On Antibiotic Therapy: No Respiratory Rate >20: No Heart Rate >90: No Temp<36 C (96.8 F) or >38.3 C: No SBP <90 or MAP <65 mmHG: No New Acute Mental Status Change: No Is the patient on CPAP, BIPAP,: No Physician Orders Ct Ab Pel Wo Con-No Oral Or Iv (10/07/24 02:56) Vital Signs Date Time Temp Pulse Resp B/P (MAP) Pulse Ox O2 Delivery O2 Flow Rate FiO2 10/07/24 06:09 74 158/80 10/07/24 06:01 158/80 10/07/24 04:56 197/88 10/07/24 04:25 91 Room Air* 0 21 10/07/24 04:00 98.3 64 12 186/89 (121) 91 98.3 10/07/24 03:09 98.7 72 20 177/104 (128) 98 98.7 Laboratory Tests Test 10/07/24 03:23 Lactic Acid Level 1.4 mmol/L (0.4-2.0) White Blood Count 9.6 10^3/uL (4.4-10.8) Medications Medications Dose Ordered Sig/Enrique Route Start Time Stop Time Status Last Admin Dose Admin Acetaminophen 1,000 mg ONCE ONCE IV 10/07/24 03:00 10/07/24 03:01 DC 10/07/24 03:55 1,000 MG Fentanyl Citrate 50 mcg ONCE ONCE IV 10/07/24 04:45 10/07/24 04:46 DC 10/07/24 04:56 50 MCG Fentanyl Citrate 50 mcg ONCE ONCE IV 10/07/24 06:00 10/07/24 06:01 DC 10/07/24 06:01 50 MCG Ketorolac Tromethamine 30 mg ONCE ONCE IV 10/07/24 03:00 10/07/24 03:01 DC 10/07/24 03:55 30 MG Ondansetron HCl 4 mg ONCE ONCE IV 10/07/24 03:00 10/07/24 03:01 DC 10/07/24 03:55 4 MG Assessment/Plan Assessment/Plan acute small bowel obstruction no perforation found on ct scan N.p.o. for now ordered zosyn ordered IV fluids ordered General surgery consult follow-up recs ordered Protonix ordered Type and screen, ekg ordered Dilaudid and Zofran small bowel series ordered from er fu results bentyl prn acute dehydration ordered ivf fen/ppx protonix ivf npo scd ng tube dispo will admit to medicine general surgery evaluation Plan discussed with: Patient Date of Service: Oct 07, 2024 Billing Provider: NANCY MAO DNP Common Visit Codes: [id number] INP/OBS CARE (HIGH) NANCY MAO DNP Oct 07, 2024 07:11
[2024-10-07] MEDS ORDERED: NITROGLYCERIN 0.4 MG SL TAB SL PRN (08:00)
[2024-10-07] MEDS ORDERED: DOCUSATE SOD 100 MG CAP PO PRN (08:00)
[2024-10-07] MEDS: GASTROGRAFIN 120 ML SOL ONE (08:17)
[2024-10-07] MEDS: SODIUM CHLORIDE 0.9% 1,000 ML IV SCH (09:35)
[2024-10-07] MEDS: PANTOPRAZOLE 40 MG/10 ML VIAL INJ IV ONE (09:39)
[2024-10-07] MEDS: PIPERACILLIN-TAZOB 3.375GM 100 ML IV ONE (09:39)
[2024-10-07] MEDS: ONDANSETRON HCL 4 MG/2 ML VIAL IV PRN (09:39)
[2024-10-07] MEDS: HYDROmorphone HCL 2 MG/ML VL/or syr IV PRN (09:42)
[2024-10-07] MEDS: PANTOPRAZOLE 40 MG/10 ML VIAL INJ IV SCH (10:00)
[2024-10-07] MEDS: ENOXAPARIN SOD 40 MG/0.4 ML SYRINGE SC SCH (10:38)
--- NOTE | 2024-10-07 10:51 | DVH ---
Procedure: XY SMALL BOWEL SERIES-W GASTROGRA Reason for study/Clinical History: eval for obstruction Comparison Study: None Technique: Single contrast small bowel series performed. FINDINGS/IMPRESSION: Initial gas meter installer view of the abdomen and pelvis appears demonstrates no acute process. Contrast is identified within the colon by 45 minutes. This represents a normal small bowel transit time.
--- NOTE | 2024-10-07 13:02 | DVHINCON2 ---
Date of service: Oct 07, 2024 Family History: Alcoholism G8 MOTHER G8 FATHER FH: colon cancer G8 FATHER Allergies: Coded Allergies: Morphine (Verified Allergy, Intermediate, vomiting , 08/18/24) Current Medications Current Medications Medications (Trade) Dose Ordered Sig/Enrique Route PRN Reason Start Time Stop Time Status Last Admin Sodium Chloride 1,000 ml @ 120 mls/hr Q8H20M IV 10/07/24 08:00 10/07/24 09:35 Ondansetron HCl (Zofran) 4 mg Q4HP PRN IV NAUSEA / VOMITING 10/07/24 08:00 10/07/24 09:39 Docusate Sodium (Colace Capsule) 100 mg BIDPRN PRN PO FOR CONSTIPATION 10/07/24 08:00 Enoxaparin Sodium (Lovenox) 40 mg DAILY SC 10/07/24 10:00 10/07/24 10:38 Nitroglycerin (Ntrostat Sublingual) 0.4 mg Q5MINP PRN SL FOR CHEST PAIN 10/07/24 08:00 Pantoprazole Sodium (Protonix) 40 mg BID IV 10/07/24 10:00 Hydromorphone HCl (Dilaudid Injection) 0.5 mg Q4HPRN PRN IV MODERATE PAIN (4-6 PAIN SCALE) 10/07/24 08:15 Hydromorphone HCl (Dilaudid Injection) 1 mg Q4HPRN PRN IV SEVERE PAIN (7-10 PAIN SCALE) 10/07/24 08:15 10/07/24 09:42 Piperacillin Sod/ Tazobactam Sod 100 ml @ 25 mls/hr Q6HR IV 10/07/24 12:00 Dicyclomine HCl (Bentyl Capsule) 20 mg QID PO 10/07/24 18:00 Vital Signs Vital Signs Date Time Temp Pulse Resp B/P (MAP) Pulse Ox O2 Delivery O2 Flow Rate FiO2 10/07/24 10:45 14 141/72 (95) 87 10/07/24 10:42 Nasal Cannula* 2 28 10/07/24 10:12 65 10/07/24 04:00 98.3 98.3 Labs/Diagnostic Data Labs Test 10/07/24 05:38 10/07/24 03:23 Range/Units Urine Color Light-yellow Yellow Urine Clarity Clear Clear Urine pH 7.0 5.0-9.0 Urine Specific [place] 1.018 1.001-1.035 Urine Protein Negative Negative Urine Ketones 1+ H Negative Urine Blood Negative Negative /uL Urine Nitrite Negative Negative Urine Bilirubin Negative Negative Urine Urobilinogen Normal Negative mg/dL Urine Leukocyte Esterase Negative Negative /uL Urine RBC 2 0 - 3 /hpf Urine Microscopic WBC 1 0-3 /HPF Urine Squamous Epithelial Cells None seen <5 /hpf Urine Bacteria None seen None Seen /hpf Urine Mucus Few None Seen Urine Glucose Trace Normal mg/dL White Blood Count 9.6 4.4-10.8 10^3/uL Red Blood Count 5.56 4.5-5.90 10^6/uL Hemoglobin 17.9 H 13.5-17.5 g/dL Hematocrit 51.0 41.0-53.0 % Mean Corpuscular Volume 91.8 80.0-100.0 fL Mean Corpuscular Hemoglobin 32.1 H 28.0-32.0 pg Mean Corpuscular Hemoglobin Concent 35.0 32.0-36.0 g/dL Red Cell Distribution Width 14.6 H 11.8-14.3 % Platelet Count 236 140-450 10^3/uL Mean Platelet Volume 7.4 6.9-10.8 fL Neutrophils (%) (Auto) 84.6 H 37.0-80.0 % Lymphocytes (%) (Auto) 9.7 L 10.0-50.0 % Monocytes (%) (Auto) 5.4 0.0-12.0 % Eosinophils (%) (Auto) 0.0 0.0-7.0 % Basophils (%) (Auto) 0.3 0.0-2.0 % Neutrophils # (Auto) 8.1 1.6-8.6 10 ^3/uL Lymphocytes # (Auto) 0.9 0.4-5.4 10 ^3/uL Monocytes # (Auto) 0.5 0-1.3 10 ^3/uL Eosinophils # (Auto) 0 0-0.8 10 ^3/uL Basophils # (Auto) 0 0-0.2 10 ^3/uL Nucleated Red Blood Cells 0.0 % Sodium Level 138 136-145 mmol/L Potassium Level 3.7 3.5-5.1 mmol/L Chloride Level 106 98-107 mmol/L Carbon Dioxide Level 26 20-31 mmol/L Anion Gap 6 5-15 Blood Urea Nitrogen 15 9-23 mg/dL Creatinine 0.88 0.700-1.30 mg/dL Glomerular Filtration Rate Calc 103 >90 mL/min BUN/Creatinine Ratio 17.0 10.0-20.0 Serum Glucose 133 H 74-106 mg/dL Lactic Acid Level 1.4 0.4-2.0 mmol/L Calcium Level 9.7 8.7-10.4 mg/dL Total Bilirubin 0.6 0.2-1.0 mg/dL Aspartate Amino Transferase (AST) 24 13-40 U/L Alanine Aminotransferase (ALT) 16 7-40 U/L Alkaline Phosphatase 82 46-116 U/L Total Protein 7.4 5.7-8.2 g/dL Albumin 4.4 3.2-4.8 g/dL Lipase 33 12-53 U/L Assessment 10/07/24 patient had a right inguinal hernia repaired in the fall of last year and three to four weeks after that he developed intermittent episodes of abdominal discomfort after eating, accompanied by sensation of "balloons forming in the abdomen" occasionally accompanied by nausea and vomiting. this is the t hird episode of such symptomatology, he had numerous tests including gallbladder ultrasound without establishment of a causative factor. I will request a colonoscopy to r/o colonic stricture and if that is negative he will need a capsule enteroscopy to r/o small bowel stricture Plan discussed with: Patient CLAYTON HILARIO MD Oct 07, 2024 13:02
[2024-10-07] MEDS: PIPERACILLIN-TAZOB 3.375GM 100 ML IV SCH (13:06)
[2024-10-07] MEDS: DICYCLOMINE HCL 10 MG CAP PO ONE (13:43)
[2024-10-07] MEDS: DICYCLOMINE HCL 10 MG CAP PO SCH (18:17)
--- NOTE | 2024-10-07 21:45 | DVHINCON2 ---
Date of service: Oct 07, 2024 Referring Physician Denny Coleman Reason for Consultation Abdominal pain possible small bowel ileus or stricture History of Present Illness 54-year-old male is brought in by ambulance from private residence for chief complaint of nonradiating, periumbilical abdominal, nausea, vomiting, diarrhea, and poor appetite. Patient endorses 1 day history of symptoms, which began yesterday at around 1400, unprovoked. Symptoms has been progressively worsening since. Pain has a 8/10 in severity, transitions between constant and intermittent, worsens whenever standing up, and is described as a balloon blowing up sensation. He endorses on having history of pain before in the past ever since having his hernia repair surgery in December 2023 at [facility], which he has had 2 subsequent bowel obstructions since then. Last bowel movement was yesterday. 10/07/24 patient had a right inguinal hernia repaired in the fall of last year and three to four weeks after that he developed intermittent episodes of abdominal discomfort after eating, accompanied by sensation of "balloons forming in the abdomen" occasionally accompanied by nausea and vomiting. this is the third episode of such symptomatology, He had numerous tests including gallbladder ultrasound without establishment of a causative factor. Dr. Coleman requested the consult to consider possible colonoscopy. On further questioning the patient apparently has had a colonoscopy and an endoscopy at the [facility] about a month ago which he reports as negative. He is scheduled with them for an outpatient elective capsule endoscopy in November Past Medical History Significant history for small-bowel obstructions, and hypertension. Past Surgical History Right inguinal hernia repair Family History: Alcoholism G8 MOTHER G8 FATHER FH: colon cancer G8 FATHER Allergies: Coded Allergies: Morphine (Verified Allergy, Intermediate, vomiting , 08/18/24) Current Medications Current Medications Medications (Trade) Dose Ordered Sig/Enrique Route PRN Reason Start Time Stop Time Status Last Admin Sodium Chloride 1,000 ml @ 120 mls/hr Q8H20M IV 10/07/24 08:00 10/07/24 09:35 Ondansetron HCl (Zofran) 4 mg Q4HP PRN IV NAUSEA / VOMITING 10/07/24 08:00 10/07/24 09:39 Docusate Sodium (Colace Capsule) 100 mg BIDPRN PRN PO FOR CONSTIPATION 10/07/24 08:00 Enoxaparin Sodium (Lovenox) 40 mg DAILY SC 10/07/24 10:00 10/07/24 10:38 Nitroglycerin (Ntrostat Sublingual) 0.4 mg Q5MINP PRN SL FOR CHEST PAIN 10/07/24 08:00 Pantoprazole Sodium (Protonix) 40 mg BID IV 10/07/24 10:00 10/07/24 21:15 Hydromorphone HCl (Dilaudid Injection) 0.5 mg Q4HPRN PRN IV MODERATE PAIN (4-6 PAIN SCALE) 10/07/24 08:15 Hydromorphone HCl (Dilaudid Injection) 1 mg Q4HPRN PRN IV SEVERE PAIN (7-10 PAIN SCALE) 10/07/24 08:15 10/07/24 20:15 Piperacillin Sod/ Tazobactam Sod 100 ml @ 25 mls/hr Q6HR IV 10/07/24 12:00 10/07/24 18:18 Dicyclomine HCl (Bentyl Capsule) 20 mg QID PO 10/07/24 18:00 10/07/24 21:15 Vital Signs Vital Signs Date Time Temp Pulse Resp B/P (MAP) Pulse Ox O2 Delivery O2 Flow Rate FiO2 10/07/24 20:15 63 16 117/63 10/07/24 17:30 96 Nasal Cannula* 2 28 10/07/24 17:00 98.6 98.6 Physical Exam General Appearance: Alert, Oriented X3, Cooperative, No acute distress HEENT: Atraumatic, PERRLA, EOMI, Mucous membr. moist/pink Respiratory: Clear to auscultation, Normal air movement Cardiovascular: Regular rate, Normal S1, Normal S2, No murmurs Abdominal: Normal bowel sounds, Soft, No hepatospenomegaly, No masses, Other (no distending abd ) Extremities: No clubbing, No cyanosis, No edema Skin: No rashes, No breakdown, No significant lesion Neuro: Normal gait, Normal speech, Strength at 5/5 X4 ext, Normal tone, Sensation intact, Cranial nerves 3-12 NL Psych/Mental Status: Mental status NL, Mood NL Labs/Diagnostic Data Labs Test 10/07/24 05:38 10/07/24 03:23 Range/Units Urine Color Light-yellow Yellow Urine Clarity Clear Clear Urine pH 7.0 5.0-9.0 Urine Specific [place] 1.018 1.001-1.035 Urine Protein Negative Negative Urine Ketones 1+ H Negative Urine Blood Negative Negative /uL Urine Nitrite Negative Negative Urine Bilirubin Negative Negative Urine Urobilinogen Normal Negative mg/dL Urine Leukocyte Esterase Negative Negative /uL Urine RBC 2 0 - 3 /hpf Urine Microscopic WBC 1 0-3 /HPF Urine Squamous Epithelial Cells None seen <5 /hpf Urine Bacteria None seen None Seen /hpf Urine Mucus Few None Seen Urine Glucose Trace Normal mg/dL White Blood Count 9.6 4.4-10.8 10^3/uL Red Blood Count 5.56 4.5-5.90 10^6/uL Hemoglobin 17.9 H 13.5-17.5 g/dL Hematocrit 51.0 41.0-53.0 % Mean Corpuscular Volume 91.8 80.0-100.0 fL Mean Corpuscular Hemoglobin 32.1 H 28.0-32.0 pg Mean Corpuscular Hemoglobin Concent 35.0 32.0-36.0 g/dL Red Cell Distribution Width 14.6 H 11.8-14.3 % Platelet Count 236 140-450 10^3/uL Mean Platelet Volume 7.4 6.9-10.8 fL Neutrophils (%) (Auto) 84.6 H 37.0-80.0 % Lymphocytes (%) (Auto) 9.7 L 10.0-50.0 % Monocytes (%) (Auto) 5.4 0.0-12.0 % Eosinophils (%) (Auto) 0.0 0.0-7.0 % Basophils (%) (Auto) 0.3 0.0-2.0 % Neutrophils # (Auto) 8.1 1.6-8.6 10 ^3/uL Lymphocytes # (Auto) 0.9 0.4-5.4 10 ^3/uL Monocytes # (Auto) 0.5 0-1.3 10 ^3/uL Eosinophils # (Auto) 0 0-0.8 10 ^3/uL Basophils # (Auto) 0 0-0.2 10 ^3/uL Nucleated Red Blood Cells 0.0 % Sodium Level 138 136-145 mmol/L Potassium Level 3.7 3.5-5.1 mmol/L Chloride Level 106 98-107 mmol/L Carbon Dioxide Level 26 20-31 mmol/L Anion Gap 6 5-15 Blood Urea Nitrogen 15 9-23 mg/dL Creatinine 0.88 0.700-1.30 mg/dL Glomerular Filtration Rate Calc 103 >90 mL/min BUN/Creatinine Ratio 17.0 10.0-20.0 Serum Glucose 133 H 74-106 mg/dL Lactic Acid Level 1.4 0.4-2.0 mmol/L Calcium Level 9.7 8.7-10.4 mg/dL Total Bilirubin 0.6 0.2-1.0 mg/dL Aspartate Amino Transferase (AST) 24 13-40 U/L Alanine Aminotransferase (ALT) 16 7-40 U/L Alkaline Phosphatase 82 46-116 U/L Total Protein 7.4 5.7-8.2 g/dL Albumin 4.4 3.2-4.8 g/dL Lipase 33 12-53 U/L SBFT XRay Negative CT SCAN ABD PELVIS IMPRESSION: 1. Dilated segments of small bowel exhibiting air-fluid levels without an identifiable obstructive etiology. A segment of dilated bowel appears to be encompassing mesenteric vessels within the central abdomen, however, this does not correspond with the zone of transition of caliber. 2. Diverticulosis coli without CT evidence of acute diverticulitis. 3. Moderate gallbladder distention. 4. Left lower quadrant ventral abdominal wall hernia containing fat, likely residual from prior loop colostomy. Problems(with codes): (1) Acute abdominal pain (2) Abnormal finding on GI tract imaging (3) Ventral hernia (4) Paralytic ileus of small intestine (5) Pancreatitis Plan/Recommendation Plan As the patient has had a recent colonoscopy I do not believe he would benefit from another colonoscopy Patient also had a recent EGD which was negative; small-bowel follow-through is negative Gallbladder distention without stones could be related to ileus; we did have m ild pancreatitis that has resolved Gallstone ileus versus partial small-bowel obstruction related to ventral hernia to be considered Repeat right upper quadrant ultrasound, monitor labs, patient tolerating clear liquid diet advance to full liquid Surgical and GI consult we will follow up patient Counseled patient about discontinuing alcohol and smoking Plan discussed with: Patient, Other (Dr Denny Coleman) SOL CASTLE MD Oct 07, 2024 21:45
--- NOTE | 2024-10-07 23:27 | DVH ---
INDICATION: gallbladder distension;mild pancreatitis TECHNIQUE: Multiple real-time sonographic images were obtained of the right upper quadrant. COMPARISON: US GALLBLADDER on DOS: 08/18/24 FINDINGS: The liver demonstrates homogeneous increased echotexture without focal mass lesions. The li marko measures 15.2 cm. Normal hepatopetal portal flow identified. No evidence of pleural effusion or abdominal ascites. There is no intrahepatic or extrahepatic ductal dilatation. The common duct measures 0.5 cm. The gallbladder is moderately distended without evidence of stone or sludge. The gallbladder wall fortunato sures 0.3 cm and is within normal limits. Negative sonographic henderson's sign. The right kidney measures 11.4 cm. The right kidney is normal in contour, size, and shape. The echoge nicity is normal. There is no hydronephrosis. The pancreas is not well visualized due to overlying bowel gas. IMPRESSION: 1. Hepatic steatosis. 2. Moderate nonspecific gallbladder distention.
[2024-10-08] VITALS (8 sets, daily range): BP systolic 110–134; BP diastolic 61–77; PULSE 43–54; RESP 15–19; TEMP 96.6–98.1; O2SAT 95–99
[2024-10-08 07:42] LABS: Hematocrit 43.4 % (41.0-53.0); Hemoglobin 14.9 g/dL (13.5-17.5); Mean Corpuscular Hemoglobin 31.8 pg (28.0-32.0); Mean Corpuscular Volume 92.7 fL (80.0-100.0); Nucleated Red Blood Cells % 0.0 %
[2024-10-08 07:47] LABS: Alanine Aminotransferase 12 U/L (7-40); Albumin 3.7 g/dL (3.2-4.8); Alkaline Phosphatase 57 U/L (46-116); Anion Gap 5 (5-15); BUN/Creatinine Ratio 11.3 (10.0-20.0); Blood Urea Nitrogen 14 mg/dL (9-23); Calcium 9.3 mg/dL (8.7-10.4); Carbon Dioxide 29 mmol/L (20-31); Chloride 105 mmol/L (98-107); Glucose 101 mg/dL (74-106); Potassium 3.8 mmol/L (3.5-5.1); Sodium 139 mmol/L (136-145); Total Protein 5.9 g/dL (5.7-8.2)
[2024-10-08 07:48] LABS: Bilirubin, Total 0.7 mg/dL (0.2-1.0)
[2024-10-08] MEDS: HYDROmorphone HCL 2 MG/ML VL/or syr IV PRN (09:50)
--- NOTE | 2024-10-08 12:49 | DVHPN2 ---
Subjective Date Seen: Oct 08, 2024 Post op day Post op day: 0 Patient reports: No new complaints, Feels better Nursing reports: No new complaints General: Normal HNT: Normal Cardiovascular: Normal Respiratory: Normal Gastrointestinal: Normal Genitourinary: Normal Musculoskeletal: Normal Neurological: Normal Objective Vitals Vital Sign Date Time Temp Pulse Resp B/P (MAP) Pulse Ox O2 Delivery O2 Flow Rate FiO2 10/08/24 09:50 49 18 141/76 10/08/24 09:00 97.4 99 97.4 10/08/24 07:44 Nasal Cannula* 2 28 Total Intake and Output 10/07/24 10/07/24 10/08/24 15:00 23:00 07:00 Intake Total 720 ml 1420 ml Balance 720 ml 1420 ml Medications Current Medications Medications Dose Ordered Sig/Enrique Route Start Time Stop Time Status Last Admin Dose Admin Sodium Chloride 1,000 ml @ 120 mls/hr Q8H20M IV 10/07/24 08:00 10/07/24 09:35 120 MLS/HR Ondansetron HCl 4 mg Q4HP PRN IV 10/07/24 08:00 10/07/24 09:39 4 MG Docusate Sodium 100 mg BIDPRN PRN PO 10/07/24 08:00 Enoxaparin Sodium 40 mg DAILY SC 10/07/24 10:00 10/08/24 09:50 40 MG Nitroglycerin 0.4 mg Q5MINP PRN SL 10/07/24 08:00 Pantoprazole Sodium 40 mg BID IV 10/07/24 10:00 10/08/24 11:22 40 MG Hydromorphone HCl 0.5 mg Q4HPRN PRN IV 10/07/24 08:15 10/08/24 09:50 0.5 MG Hydromorphone HCl 1 mg Q4HPRN PRN IV 10/07/24 08:15 10/08/24 04:41 1 MG Piperacillin Sod/ Tazobactam Sod 100 ml @ 25 mls/hr Q6HR IV 10/07/24 12:00 10/08/24 12:33 25 MLS/HR Dicyclomine HCl 20 mg QID PO 10/07/24 18:00 10/08/24 12:32 20 MG General: Normal, Well developed Head/Eyes: Normal ENT: Normal Neck: Normal, Supple Lungs: Normal, Normal inspection Cardiovascular: Normal, Regular rate and rhythm Abdominal: Normal, Soft Musculoskeletal: Normal Extremities: Normal Skin: Normal Neurological: Normal Labs and Microbiology Laboratory Tests 10/08/24 06:30 Test 10/08/24 06:30 Range/Units Serum Glucose 101 74-106 mg/dL Ass/Plan Labs and/or images reviewed: Labs reviewed by me, Image(s) reviewed by me Assessment/Plan patient states abdominal pain is improving patient had a colonoscopy recently Ultrasound of gallbladder : The gallbladder is moderately distended without evidence of stone or sludge patient would benefit from capsule enteroscopy to r/o small bowel stricture Plan: per surgery patient of to discharge patient to follow up in surgery clinic after capsule enteroscopy Prognosis: Good Plan discussed with patient , Dr. Coleman Visit Coding Surgery Date of Service if different f: Oct 08, 2024 Billing Provider: CLAYTON COLEMAN MD Surgery Visit Codes: [id number] INP/OBS CARE(HIGH) ROBERTO MELTON PHYSICAL TRAINER Oct 08, 2024 12:49
--- NOTE | 2024-10-08 14:30 | DVHPN2 ---
Progress Note - Dictate Date Seen: Oct 08, 2024 Medical Necessity Reason Pt with a Central, PICC or Fol: No Subjective No new complaints, feels better Patient had a bowel movement today Tolerating regular diet vital signs Vital Sign Date Time Temp Pulse Resp B/P (MAP) Pulse Ox O2 Delivery O2 Flow Rate FiO2 10/08/24 14:19 48 18 126/63 10/08/24 12:52 98.1 96 98.1 10/08/24 07:44 Nasal Cannula* 2 28 Total Intake and Output 10/07/24 10/07/24 10/08/24 15:00 23:00 07:00 Intake Total 720 ml 1420 ml Balance 720 ml 1420 ml medications Current Medications Medications Dose Ordered Sig/Enrique Route Start Time Stop Time Status Last Admin Dose Admin Sodium Chloride 1,000 ml @ 120 mls/hr Q8H20M IV 10/07/24 08:00 10/07/24 09:35 120 MLS/HR Ondansetron HCl 4 mg Q4HP PRN IV 10/07/24 08:00 10/07/24 09:39 4 MG Docusate Sodium 100 mg BIDPRN PRN PO 10/07/24 08:00 Enoxaparin Sodium 40 mg DAILY SC 10/07/24 10:00 10/08/24 09:50 40 MG Nitroglycerin 0.4 mg Q5MINP PRN SL 10/07/24 08:00 Pantoprazole Sodium 40 mg BID IV 10/07/24 10:00 10/08/24 11:22 40 MG Hydromorphone HCl 0.5 mg Q4HPRN PRN IV 10/07/24 08:15 10/08/24 14:19 0.5 MG Hydromorphone HCl 1 mg Q4HPRN PRN IV 10/07/24 08:15 10/08/24 04:41 1 MG Piperacillin Sod/ Tazobactam Sod 100 ml @ 25 mls/hr Q6HR IV 10/07/24 12:00 10/08/24 12:33 25 MLS/HR Dicyclomine HCl 20 mg QID PO 10/07/24 18:00 10/08/24 12:32 20 MG objective General Appearance: Alert, Oriented X3, Cooperative, No acute distress HEENT: Atraumatic, PERRLA, EOMI, Mucous membr. moist/pink Respiratory: Clear to auscultation, Normal air movement Cardiovascular: Regular rate, Normal S1, Normal S2, No murmurs Abdominal: Normal bowel sounds, Soft, No hepatospenomegaly, No masses, Other (no distending abd ) Extremities: No clubbing, No cyanosis, No edema Skin: No rashes, No breakdown, No significant lesion Neuro: Normal gait, Normal speech, Strength at 5/5 X4 ext, Normal tone, Sensation intact, Cranial nerves 3-12 NL Psych/Mental Status: Mental status NL, Mood NL laboratory and microbiology Laboratory Tests 10/08/24 06:30 Test 10/08/24 06:30 Range/Units Serum Glucose 101 74-106 mg/dL Problems(with codes): (1) Paralytic ileus of small intestine (2) Abnormal finding on GI tract imaging (3) Ventral hernia Prognosis Plan Gallbladder distention likely related to his ileus Patient has had a bowel movement today Ambulate patient No further GI workup at this time Outpatient follow up with a gastro group to review his results and arrange capsule endoscopy Plan discussed with: Patient SOL CASTLE MD Oct 08, 2024 14:30
[2024-10-08] MEDS ORDERED: DICY10CA PO (16:58)
--- NOTE | 2024-10-08 17:00 | DVHDS2 ---
Discharge Summary Date of Admission Oct 07, 2024 at 07:57 Date of Discharge: Oct 08, 2024 Labs/Diagnostic Data: Laboratory Results Test 10/08/24 06:30 10/07/24 05:38 10/07/24 03:23 White Blood Count 5.8 10^3/uL (4.4-10.8) Red Blood Count 4.68 10^6/uL (4.5-5.90) Hemoglobin 14.9 g/dL (13.5-17.5) Hematocrit 43.4 % (41.0-53.0) Mean Corpuscular Volume 92.7 fL (80.0-100.0) Mean Corpuscular Hemoglobin 31.8 pg (28.0-32.0) Mean Corpuscular Hemoglobin Concent 34.3 g/dL (32.0-36.0) Red Cell Distribution Width 14.8 % (11.8-14.3) Platelet Count 191 10^3/uL (140-450) Mean Platelet Volume 7.8 fL (6.9-10.8) Neutrophils (%) (Auto) 60.0 % (37.0-80.0) Lymphocytes (%) (Auto) 30.0 % (10.0-50.0) Monocytes (%) (Auto) 8.2 % (0.0-12.0) Eosinophils (%) (Auto) 1.6 % (0.0-7.0) Basophils (%) (Auto) 0.2 % (0.0-2.0) Neutrophils # (Auto) 3.5 10 ^3/uL (1.6-8.6) Lymphocytes # (Auto) 1.7 10 ^3/uL (0.4-5.4) Monocytes # (Auto) 0.5 10 ^3/uL (0-1.3) Eosinophils # (Auto) 0.1 10 ^3/uL (0-0.8) Basophils # (Auto) 0 10 ^3/uL (0-0.2) Nucleated Red Blood Cells 0.0 % Sodium Level 139 mmol/L (136-145) Potassium Level 3.8 mmol/L (3.5-5.1) Chloride Level 105 mmol/L (98-107) Carbon Dioxide Level 29 mmol/L (20-31) Anion Gap 5 (5-15) Blood Urea Nitrogen 14 mg/dL (9-23) Creatinine 1.24 mg/dL (0.700-1.30) Glomerular Filtration Rate Calc 70 mL/min (>90) BUN/Creatinine Ratio 11.3 (10.0-20.0) Serum Glucose 101 mg/dL (74-106) Calcium Level 9.3 mg/dL (8.7-10.4) Total Bilirubin 0.7 mg/dL (0.2-1.0) Aspartate Amino Transferase (AST) 16 U/L (13-40) Alanine Aminotransferase (ALT) 12 U/L (7-40) Alkaline Phosphatase 57 U/L (46-116) Total Protein 5.9 g/dL (5.7-8.2) Albumin 3.7 g/dL (3.2-4.8) Urine Color Light-yellow (Yellow) Urine Clarity Clear (Clear) Urine pH 7.0 (5.0-9.0) Urine Specific [place] 1.018 (1.001-1.035) Urine Protein Negative (Negative) Urine Ketones 1+ (Negative) Urine Blood Negative /uL (Negative) Urine Nitrite Negative (Negative) Urine Bilirubin Negative (Negative) Urine Urobilinogen Normal mg/dL (Negative) Urine Leukocyte Esterase Negative /uL (Negative) Urine RBC 2 /hpf (0 - 3) Urine Microscopic WBC 1 /HPF (0-3) Urine Squamous Epithelial Cells None seen /hpf (<5) Urine Bacteria None seen /hpf (None Seen) Urine Mucus Few (None Seen) Urine Glucose Trace mg/dL (Normal) Lactic Acid Level 1.4 mmol/L (0.4-2.0) Lipase 33 U/L (12-53) Other Laboratory Tests 10/08/24 06:30 Brief Hx & Hospital Course: 54-year-old male past medical history hypertension small-bowel obstruction x2 after right inguinal hernia surgery in December of 2023 chief complaint patient states he has been dealing with random events of bowel obstruction since he had a surgery in December of 2023. Patient states he has been having some epigastric pain and burning sensation along with abdominal bloating and distention feeling all this started yesterday 2:00 p.m. he also had some nausea and vomiting and some diarrhea. Patient states he had specks of blood in his vomit but nothing new since he has been admitted. Patient is currently states his abdomen feels like ball is in his stomach. He denies any tearing sensation in his chest abdomen. He is concerned because he usually has a bowel obstruction like last time. He did state he follow up with GI outpatient in his supposed to do a pill steady for him which the pending authorization. Patient states he did have a bowel movement last time was two days prior. When evaluating patient's labs and imaging fentanyl was given labetalol Zofran Toradol Tylenol hemoglobin was found to be 17.9 glucose 133 otherwise CBC and CMP unremarkable UA was ketones CT scan of the abdomen pelvis shows dilated small bowel no obstruction diverticulosis gallbladder distention and left lower quadrant differential abdominal wall hernia. With these findings we will admit and ask for General surgery evaluation NPO IV fluids pain medications. Had small bowel follow through and unremarkable Seen by surgery and GI and recommended outpatient follow up with capsule endoscopy Condition at Discharge: Good Final Diagnosis/Problems List Ileus Discharge Disposition: Home Discharge Instruct/Medications Diet: Regular Activity: No Restrictions, As Tolerated Follow Up/Referral: PCP and surgery Medications: dicyclomine Scheduled Dicyclomine Hcl (Bentyl Capsule), 20 MG PO QID Discharge Statement: "Patient was advised to return to the ER or call 911 if any headaches, dizziness, shortness of breath, chest pain, abdominal pain, bleeding, fevers, or worsening of medical condition. Patient was counseled about treatment plan, medications, possible side effects, patientverbalized understanding. All questions were answered to the best of my ability. This discharge took greater then 30 minutes in planning, reviewing documentation, counseling the patient, and discussing with other team members." ASSESSMENT ASSESSMENT Assessment Ileus Date of Service: Oct 08, 2024 Billing Provider: WAYNE HENAO MD Common Visit Codes: [id number]/OBS DISCH DAY >30min WAYNE HENAO MD Oct 08, 2024 17:00
== END 2024-10-08 20:15 | disposition home or self-care (01) | DRG 390 ==
LOC: EDBD 02:43 → ER 02:43 → OVERFLOW 07:57 → CENTRAL 17:49
PROVIDERS: ADMIT Hospitalist; ATTEND Hospitalist
DX: K56.699 Other intestinal obstruction unspecified as to partial versus complete obstruction (principal); E86.0 Dehydration; K82.8 Other specified diseases of gallbladder; I10 Essential (primary) hypertension; Z93.3 Colostomy status; Z88.5 Allergy status to narcotic agent; Z79.899 Other long term (current) drug therapy; Z80.0 Family history of malignant neoplasm of digestive organs
CPT/HCPCS: 36415; 74176; 74250; 76705; 80053; 81001; 83605; 83690; 85025; 96365; 96375; G0378; J0131; J1885; J2405; J2470; J2543

== ENCOUNTER 2025-02-14 21:37 | Emergency (ER) | payer SELFPAY ==
[~2025-02-14] VITALS: Ht 172.7 cm; Wt 77.1 kg
[~2025-02-14 21:37] MED LIST: DICY10CA PO
[2025-02-14 21:53] VITALS: BP 166/75; PULSE 65; RESP 18; TEMP 98.9; O2SAT 97
--- NOTE | 2025-02-16 14:55 | ECG ---
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
== END 2025-02-14 22:29 | disposition left against medical advice (07) ==
LOC: EDBD 21:37 → ER 21:37
DX: R53.1 Weakness (principal); T50.905A Adverse effect of unspecified drugs, medicaments and biological substances, initial encounter; Z53.21 Procedure and treatment not carried out due to patient leaving prior to being seen by health care provider; Y92.89 Other specified places as the place of occurrence of the external cause
CPT/HCPCS: 93005